=== PATIENT | male | born 1965 | race African-American/Black ===

== ENCOUNTER 2019-02-25 05:49 | Emergency (ER) | payer MEDICARE, OTHER ==
[~2019-02-25] VITALS: Ht 177.8 cm; Wt 81.0 kg
[2019-02-25 08:25] VITALS: BP 140/85
== END 2019-02-25 08:26 | disposition home or self-care (01) ==
LOC: ER 05:49
DX: S20.212A Contusion of left front wall of thorax, initial encounter (principal); F31.9 Bipolar disorder, unspecified; X58.XXXA Exposure to other specified factors, initial encounter; Y93.89 Activity, other specified; Y92.9 Unspecified place or not applicable
CPT/HCPCS: 99281